=== PATIENT | female | born 1975 ===

== ENCOUNTER 2017-03-18 14:26 | Outpatient (CLI) | payer BC ==
--- NOTE | 2017-03-19 16:32 | Magnetic Resonance Report ---
BILATERAL BREAST MRI WITHOUT AND WITH CONTRAST: 03/18/17 14:26:00 CLINICAL: Right breast mass. COMPARISON:Recent mammograms and right breast ultrasound from [facility]. TECHNIQUE: Axial 1.0-mm T1 without, axial high resolution 2.0-mm T2 and axial 1.0-mm dynamic Vibrant high-resolution postcontrast T1 fat saturation sequences on a 1.5 Lorie magnet. The examination was performed with an 8 channel dedicated [place] breast coil. Post processing with CAD and subtraction was performed on an [employer] workstation. 15.0 cc of Multihance was injected without incident for the contrast portion of the exam. Consent was obtained prior to the administration of the contrast. FINDINGS: Right: Minimal background parenchymal enhancement. A central non-enhancing encapsulated mass measures 7.8 cm craniocaudal dimension by 6.3 cm AP dimension by 4.5 cm transverse dimension. It has a low signal capsule and has heterogeneous internal signal with a predominate hyperintense signal. No other mass and no suspicious enhancement of the right breast. No suspicious lymph nodes. Left: Minimal background parenchymal enhancement. No mass or suspicious enhancement of the left breast. No suspicious lymph nodes. IMPRESSION: 1. A 7.8 x 6.3 x 4.5 cm right breast mass. 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 Recommend ultrasound guided needle core biopsy to confirm benignity. 2. Negative left breast. RIGHT BI-RADS 4A -- Mildly Suspicious LEFT BI-RADS 1 -- Negative
== END 2017-03-18 14:27 | disposition home or self-care (01) ==
LOC: SPVIMAG 14:26
PROVIDERS: ATTEND Obstetrics & Gynecology Gynecology
DX: N63 Unspecified lump in breast (principal)
CPT/HCPCS: 0159T; A9577; C8908; 77059